=== PATIENT | female | born 1970 ===

== ENCOUNTER 2017-11-26 12:29 | Day surgery (SDC) | payer BC ==
[2017-11-18 11:14] VITALS: BMI 36.0
[2017-11-26] MEDS ORDERED: Propofol 10 mg/ml Inj (20 ML) ONE (18:16)
[2017-11-26] MEDS ORDERED: Midazolam 2 MG/2 ML VIAL ONE (18:16)
[2017-11-26] MEDS ORDERED: cefOXitin IV 1 gm in Dextrose 2 GM/100 ML BAG IVPB ONE (18:18)
[2017-11-26] MEDS ORDERED: Rocuronium 10 mg/ml (5 ml) ONE (18:29)
[2017-11-26] MEDS ORDERED: Lidocaine Hydrochloride 5 ML INJ ONE (18:52)
[2017-11-26] MEDS ORDERED: Succinylcholine Chloride 20 mg/ml Syr (5 ml) IV ONE (18:52)
[2017-11-26] MEDS ORDERED: Neostigmine Methylsulfate 3mg/3ml Syringe IV ONE (19:11)
[2017-11-26] MEDS ORDERED: HYDROmorphone 0.5 mg/0.5 ml ISec IVP PRN (20:25)
[2017-11-26 21:47] VITALS: TEMP 97
[2017-11-26 22:32] VITALS: BP 146/82; PULSE 90; RESP 15; O2SAT 97
--- NOTE | 2017-12-01 06:27 | OP ---
PROCEDURE DATE: 11/26/2017 PREOPERATIVE DIAGNOSES: 1. Tubo-ovarian abscess. 2. Paratubal cyst. POSTOPERATIVE DIAGNOSES: 1. Tubo-ovarian abscess. 2. Paratubal cyst. 3. Adhesion of fallopian tube. SURGEON: Cata Sheikh MD HEEL COVER SOFTENER: FALKO Garibay TYPE OF ANESTHESIA: General endotracheal anesthesia. PROCEDURES: Diagnostic laparoscopy, paratubal cystectomy, bilateral distal salpingolysis and salpingectomy. OPERATIVE FINDINGS: Paratubal cyst, adhesions of tubes to peritoneum, appendix. A cyst was ruptured in the bag outside of the body. ESTIMATED BLOOD LOSS: 20 mL. SPECIMEN: Paratubal cyst, bilateral distal tubes. OPERATIVE INDICATIONS: The patient was a 47-year-old who had been admitted to the hospital for tubo-ovarian abscess that was treated with IV antibiotics. It was suspected because she had a paratubal cyst that remained. Tumor markers were negative. DESCRIPTION OF PROCEDURE: After obtaining informed consent, the patient was taken to the operating room where general endotracheal anesthesia was administered. She was examined under anesthesia. A normal-sized uterus was noted with a fullness in the right adnexa. The patient was placed in the dorsal lithotomy position and prepped and draped in the usual sterile fashion. A sponge stick was used for uterine manipulation in the vagina. A Orr was inserted. Attention was then turned to the patient's abdomen. OG tube was in place and draining. A 5 mm incision was made in the inferior umbilicus. The abdomen wall was tented and Optiview trocar entry into the peritoneal cavity, atraumatic site of entry. CO2 gas was allowed to insufflate maintaining less than 15 mmHg throughout the procedure. The above findings were noted and were visualized. Bilateral trocars were placed in the bilateral lower quadrant 5 mm under direct visualization. The abdomen and pelvis were surveyed with the above noted findings. The adhesions were dissected bluntly where able and minor cautery was made where the adhesions contained small blood vessels. The tubo-ovarian cyst was dissected and cauterized with the LigaSure device. There was no additional active bleeding. FloSeal was placed on operative site. The instruments were removed under direct visualization. The sponge and naty were removed from the vagina. The patient tolerated the procedure well. All instruments and counts were correct. The patient was taken to the PACU in stable condition. Cata Sheikh MD
== END 2017-11-26 22:30 | disposition home or self-care (01) ==
LOC: C.SDS 12:29
PROVIDERS: ATTEND Obstetrics & Gynecology
DX: N70.93 Salpingitis and oophoritis, unspecified (principal); N83.209 Unspecified ovarian cyst, unspecified side; N83.8 Other noninflammatory disorders of ovary, fallopian tube and broad ligament; N73.6 Female pelvic peritoneal adhesions (postinfective)
CPT/HCPCS: 58661; 58662; 88104; 88304; 88305; C1713; C2615; J0694; J1100; J1170; J2250; J2405; J2704; J2710; J3010